=== PATIENT | female | born 1960 | race American Indian/Alaskan Native ===

== ENCOUNTER 2016-06-12 14:52 | Outpatient (CLI) | payer OTHER | END 2016-06-12 14:53 | disposition home or self-care (01) | LOC: LABHHL 14:52 | PROVIDERS: ATTEND Internal Medicine Gastroenterology | DX: K21.9 Gastro-esophageal reflux disease without esophagitis (principal); R11.2 Nausea with vomiting, unspecified; K30 Functional dyspepsia; R14.0 Abdominal distension (gaseous); Z98.84 Bariatric surgery status | CPT/HCPCS: 88305; 88342 ==